=== PATIENT | male | born 1950 | race Two or more races ===

== ENCOUNTER 2017-08-09 13:20 | Emergency (ER) | payer SELFPAY ==
[~2017-08-09] VITALS: Ht 177.8 cm; Wt 99.8 kg
[2017-08-09 13:24] VITALS: BP 149/108
== END 2017-08-09 14:01 | disposition home or self-care (01) ==
LOC: ER 13:21
DX: R51 Headache (principal); M26.609 Unspecified temporomandibular joint disorder, unspecified side
CPT/HCPCS: A4606; Z7502; Z7610

== ENCOUNTER 2019-08-31 20:15 | Emergency (ER) | payer BC, OTHER ==
[~2019-08-31] VITALS: Ht 177.8 cm; Wt 99.8 kg
[2019-08-31 20:32] VITALS: BP 138/84
== END 2019-08-31 21:50 | disposition home or self-care (01) ==
LOC: ER 20:15
DX: U07.1 COVID-19 (principal); M79.10 Myalgia, unspecified site
CPT/HCPCS: 71045; 99284; C9803; U0003